=== PATIENT | female | born 1995 | race Caucasian/White ===

== ENCOUNTER 2024-10-14 08:42 | Emergency (ER) | payer BC, SELFPAY ==
[2024-10-14 08:44] VITALS: BP 109/70; PULSE 85; RESP 18; TEMP 37.7; O2SAT 97; BMI 21.8
--- NOTE | 2024-10-14 09:00 | CRLHL7_ITS ---
For Patients: As a result of the Century Cures Act, medical imaging exams and procedure reports are released immediately into your electronic medical record. You may view this report before your referring provider. If you have questions, please contact your health care provider. Indication: Bleeding in the setting of a 1st trimester . Dating and viability Technique: Sonography of the gravid uterus was performed. The study was performed transabdominally and transvaginally. Grayscale imaging was provided. Color Doppler was provided regarding the ovaries and M mode Doppler was performed to document heart rate. Comparison: None Findings: There is a single live intrauterine . Based on a crown-rump length measurement of 1.5 centimeters, the gestational age of 7 weeks and 6 days with an estimated date of delivery of 05/27/2025. heart rate is 159 beats per minute which is normal Gestational sac size is 3.8 centimeters and appears normal. The yolk sac is 4 millimeters and appears normal The ovaries are normal in size. The right ovary measures 4.1 x 2.1 x 2.9 centimeters and the left ovary measures 3.5 x 1.4 x 1.6 centimeters. A corpus luteum is noted on the right. There is a subchorionic hemorrhage measuring 4.2 x 2.6 x 0.5 centimeters Impression: 1. Single live intrauterine at 7 weeks and 6 days with an estimated date of delivery of 05/27/2025. 2. Normal heart rate at 159 beats per minute. 3. Subchorionic hemorrhage measuring 4.2 x 2.6 x 0.5 centimeters. Dictated by Jad Harris MD @ 10/14/2024 9:30:42 AM (Electronically Signed)
--- NOTE | 2024-10-14 09:14 | ED.PREGNANCY ---
HPI - General Date Seen: 10/14/24 Chief complaint: Vaginal Bleeding Stated complaint: bleeding, 7 wks Time Seen by Provider: 10/14/24 09:01 Source: patient Mode of arrival: ambulatory Limitations: no limitations History of Present Illness HPI Narrative: Patient is a 29-year-old female presenting to the emergency department for vaginal bleeding. She is . She is about 7 weeks . This is based off her last menstrual period. She states she was having some spotting earlier in the in states over the weekend she notices should have occasional episodes will she will pass a large amount of blood and then go back to spotting. Was treated for bacterial vaginosis early in her and is now being treated for vaginosis again. Currently getting metronidazole 500 mg b.i.d. for 7 days. States he feels mildly fatigued denies lightheadedness, dizziness, chest pain, shortness of breath, abdominal pain, dysuria, pelvic pain. No other concerns noted at this time. Is not aware of any other complications during her . Related Data Home Medications ?Medication ?Instructions ?Recorded ?Confirmed metronidazole 500 mg tablet 500 mg PO BID 10/14/24 10/14/24 vit no.95-ferrous 1 tab PO DAILY 10/14/24 10/14/24 fumarate 28 mg-folic acid 800 mcg tablet ( Multivitamins) Allergies Allergy/AdvReac Type Severity Reaction Status Date / Time amoxicillin Allergy Mild fever and Verified 10/14/24 08:52 rash Review of Systems Status of ROS: Reports: 10 or more systems reviewed and unremarkable except as noted in History and below Exam Narrative: Exam Narrative: Const: Well-nourished, Well-developed, in mild distress Eyes: PERRL, no conjunctival injection, and symmetrical lids HENT: Atraumatic external nose and ears. Moist mucous membranes. Neck: Symmetric, trachea midline, No thyromegaly. CVS: RRR, No murmurs or gallops. Peripheral pulses 2+ and equal in all extremities RESP: Unlabored respiratory effort. Clear to auscultation bilaterally. GI: Nontender/Nondistended, No rebound or guarding. MSK:Extremities w/o deformity, Normal Active ROM Skin: Warm, Dry. No rashes or lesions. Neuro: Normal Muscle tone, No focal neurological deficits. Psych: Awake, Alert, & Oriented x3. Appropriate mood and affect. Const: Vital Signs, click to edit/add: Vital Signs - 24 hr 10/14/24 08:44 Temperature 99.9 F H Pulse Rate [Pulse Oximeter] 85 Respiratory Rate 18 Blood Pressure [Ri ght Upper Arm] 109/70 Pulse Oximetry 97 Oxygen Delivery Me thod Room Air Course Vital Signs Vital signs: Initial Vital Signs Temperature 99.9 F H 10/14/24 08:44 Temperature Source Temporal Artery Scan 10/14/24 08:44 Pulse Rate 85 10/14/24 08:44 Respiratory Rate 18 10/14/24 08:44 Blood Pressure 109/70 10/14/24 08:44 Blood Pressure Mean 83 10/14/24 08:44 Blood Pressure Position Sitting 10/14/24 08:44 Pulse Oximetry 97 10/14/24 08:44 Oxygen Delivery Method Room Air 10/14/24 08:44 Vital Signs Temperature 99.9 F H 10/14/24 08:44 Pulse Rate 85 10/14/24 08:44 Respiratory Rate 18 10/14/24 08:44 Blood Pressure 109/70 10/14/24 08:44 Pulse Oximetry 97 10/14/24 08:44 Oxygen Delivery Method Room Air 10/14/24 08:44 Temperature 99.9 F H 10/14/24 08:44 Pulse Rate 85 10/14/24 08:44 Respiratory Rate 18 10/14/24 08:44 Blood Pressure 109/70 10/14/24 08:44 Pulse Oximetry 97 10/14/24 08:44 Oxygen Delivery Method Room Air 10/14/24 08:44 MDM - OB/Uterine Contractions MDM Narrative Medical decision making narrative: Patient is a 29-year-old female presenting to the emergency department for vaginal bleeding. Will do an ultrasound to look for signs of miscarriage and/or ectopic . She has not had an ultrasound done yet. Is not having any current pain. Will check a hemoglobin and a quantitative hCG. CBC and quantitative hCG showed no concerning abnormalities. Ultrasound shows a subchorionic hemorrhage was is likely the cause of her bleeding. She is 7 weeks 6 days along with a normal heart rate. No signs of ectopic . Bleeding is relatively minimal and I do not believe medicine or surgical management is required at this time. She is otherwise doing well and can be safely discharged. She will follow up outpatient with Ob Lab Data Labs: Lab Results 10/14/24 Range/Units 09:21 WBC 7.29 (4.50-11.00) K/uL RBC 4.30 (4.00-5.20) m/uL Hgb 12.9 (12.0-16.0) gm/dL Hct 37.8 (33.0-51.0) % MCV 88 (80-100) fL MCH 30 (26-34) pg MCHC 34 (32-36) gm/dL RDW Coeff of Oscar 13.0 (11.5-15.5) % Plt Count 222 (140-440) K/uL Neut % (Auto) 72.3 H (42.0-72.0) % Lymph % (Auto) 18.7 L (20-44) % Upson % (Auto) 7.3 (0.0-11.0) % Eos % (Auto) 1.1 (0.0-7.0) % Baso % (Auto) 0.3 (0.0-3.0) % Neut # (Auto) 5.30 (1.7-7.0) K/uL Lymph # (Auto) 1.40 (0.90-2.90) K/uL Upson # (Auto) 0.50 (0.00-0.90) K/UL Eos # (Auto) 0.08 (0.00-0.50) K/uL Baso # (Auto) 0.02 (0.00-0.30) K/uL Abs Immat Gran (auto) 0.02 (0.00-0.30) K/uL Imm/Tot Granulo (auto) 0.3 % HCG, Quant 832033.00 mIU/mL Imaging Data Pelvic ultrasound: Radiologist's impression: 1. Single live intrauterine at 7 weeks and 6 days with an estimated date of delivery of 05/27/2025. 2. Normal heart rate at 159 beats per minute. 3. Subchorionic hemorrhage measuring 4.2 x 2.6 x 0.5 centimeters. Dictated by Jad Harris MD @ 10/14/2024 9:30:42 AM Discharge Plan Discharge Clinical Impression: Subchorionic hemorrhage in first trimester Patient Disposition: Home, Self-Care Condition: Stable Instructions: Subchorionic Hemorrhage (ED) Additional Instructions: I recommend calling [place] woman self the schedule an outpatient appointment. Return to emergency department for new or worsening symptoms. Prescriptions: No Action metronidazole 500 mg tablet 500 mg PO BID PNV cmb#95-ferrous fumarate-FA [ Multivitamins] 28 mg iron- 800 mcg tablet 1 tab PO DAILY Follow Up/Referrals: Provider,Not a Local [Primary Care Provider] - Stand Alone Forms: ivWatch Info Instructions
[2024-10-14 09:29] LABS: Basophils Absolute Auto 0.02 K/uL (0.00-0.30); Basophils Percent Auto 0.3 % (0.0-3.0); Eosinophils Absolute Auto 0.08 K/uL (0.00-0.50); Eosinophils Percent Auto 1.1 % (0.0-7.0); Hematocrit 37.8 % (33.0-51.0); Hemoglobin* 12.9 gm/dL (12.0-16.0); Immature Granulocytes Abs Auto 0.02 K/uL (0.00-0.30); Immature Granulocytes Pct Auto 0.3 %; Lymphocytes Percent Auto 18.7 % (20-44); Mean Corpuscular HGB Conc 34 gm/dL (32-36); Mean Corpuscular Hemoglobin 30 pg (26-34); Mean Corpuscular Volume 88 fL (80-100); Monocytes Percent Auto 7.3 % (0.0-11.0); Neutrophils Percent Auto 72.3 % (42.0-72.0); Platelet Count* 222 K/uL (140-440); White Blood Count* 7.29 K/uL (4.50-11.00)
[2024-10-14 09:37] LABS: Slide Review Reflex No
--- OUTSIDE RECORDS SUMMARY | 2024-10-14 09:51 | XMS_ITS | Encounter Summary ---
Author Organization [facility] Address [address] [place] [address] Care Team Providers Care Special Needs Caregiver Name Role Phone Elsewhere, Pcp Primary Care Provider Unavailabl e Encounter Details Date Type Department Care Team (Late st Contact Info) Description 10/13/2024 Results Follow-Up [facility] [address] [place] [address] Baldo Acuna, P.AKrystal-Bryant., P.A. [address] [address] Vaginitis Panel, Amplified RNA Social History Tobacco Use Types Packs/Day Years Used Date Smoking Tobacco: Never Passive Smoke Exposure: Current Smokeless Tobacco: Never Alcohol Use Standard Drinks/Week Comments Not Currently 0 (1 standard drink = 0.6 oz pur e alcohol) Dental Answer Date Recorded Dental: Regular Dentist Unknown 10/13/19 25 Estimated Date of Delivery Comme nts Yes 05/28/2025 Sex and Gender Information Value Date Recorded Sex Assigned at Not on file Legal Sex Female 2:33 AM CLIN NURSE Gender Identity Not on file Sexual Orientation Not on file documented as of this encounter Plan of Treatment Not on file documented as of this encounter Visit Diagnoses Not on filedocumented in this encounter Care Teams Special Needs Caregiver Relationship Specialty Start Date End Date Elsewhere, Pcp PCP - General Internal Medicine 10/12/24 documented as of this encounter
--- OUTSIDE RECORDS SUMMARY | 2024-10-14 09:51 | XMS_ITS | Encounter Summary ---
Author Organization [facility] Address [address] [address] Phone Care Team Providers Care Meteorological Engineer Name Role Phone Elsewhere, Pcp Primary Care Provider Unavailabl e Encounter Details Date Type Department Care Team (Latest Contact Info) Description 09/26/2024 Travel Social History Tobacco Use Types Packs/Day Years Used Date Smoking Tobacco: Never Smokeless Tobacco: Never Alcohol Use Standard Drinks/Week Comments Yes 1 (1 standard drink = 0.6 oz pur e alcohol) Humiliation, Afraid, Rape, and Kick questionnair e Answer Date Recorded Within the last year, have y ou been afraid of your partner or ex-partner? No 03/14/2023 Within the last year, have y ou been humiliated or emotionally abused in other ways by your partner or ex-partner? No Within the last year, have y ou been kicked, hit, slapped, or otherwise physically hurt by your partner or ex-partner? No 03/14/2023 Within the last year, have y ou been raped or forced to have any kind of sexual activity by your partner or ex-partner? 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
--- OUTSIDE RECORDS SUMMARY | 2024-10-14 09:51 | XMS_ITS | Encounter Summary ---
Author Organization [facility] Address [address] [address] Phone Care Team Providers Care Claims Processor Name Role Phone Elsewhere, Pcp Primary Care Provider Unavailabl e Reason for Visit * Reason Comments Filer And Sander Exam Encounter Details Date Type Department Care Team (Late st Contact Info) Description 09/26/2024 9:20 AM CDT [facility] [place] [address] [place] [address] [phone] Temi Echeverria PA-C [facility] [address] [facility] [address] [place], [place] [phone] Acute vaginitis (Primary Dx) Social History Tobacco Use Types Packs/Day Years [...] on file documented as of this encounter Last Filed Vital Signs Vital Sign Reading Time Taken Comments Blood Pressure 100/58 09/26/2024 9:14 AM CDT Pulse - - Temperature - - Respiratory Rate - - Oxygen Saturation - - Inhaled Oxygen Concentration - - Weight 58.1 kg (128 lb) 09/26/2024 9:14 AM CDT Height 162.6 cm (5' 4) 09/26/2024 9:14 AM CDT Body Mass Index 21.97 09/26/2024 9:14 AM CDT documented in this encounter Patient Instructions * Patient Instructions* Temi Echeverria PA-C - 09/26/2024 9:20 AM CDT 1. Acute vaginitis (Primary) - SMEAR WET MOUNT SALINE/INK Other orders - metroNIDAZOLE vaginal (Metrogel-Vaginal) 0.75 % vaginal gel; Insert 1 Applicator into the vagina two times a day for 7 days. If your provider has ordered a radiology test that needs to be scheduled at any of the [facility] facilities, for your convenience and to offer you the best service, we ask that you contact the [facility] directly at [phone]. If you have an Ultrasound or DEXA order from [facility], those are performed directly by them. Please call [phone] ([place]) or [phone] ([place]) to schedule those tests. documented in this encounter Ordered Prescriptions Prescription Sig Dispense Quantity Refills Last Filled Start Date End Date metroNIDAZOLE vaginal (Metrogel-Vaginal) 0.75 % vaginal gel Insert 1 Applicator into the vagina two times a day for 7 days. 70 g 2 09/26/2024 documented in this encounter Progress Notes * Temi Echeverria PA-C - 09/26/2024 9:20 AM CDT CC: vaginal odor and irritation Debra is a 29 year old who presents with concern of Possible BV or Yeast infection This is an Acute problem for her. The problem began several weeks ago and has tried OTC meds . She states the problem is located: intravaginally and does not radiate. Are there associated features with the problem- if yes describe: yes - odor and irritation. Milky white and yellow dishcarge. The patient does not additional complaints. Aggravating factors include: sexual intercourse Alleviating factors include: she tried 7 day monistat course, which improved some symptoms, but then odor and irritation resumed. Current method of contraception:None Home UPT positive on 09/24. They are thrilled for . Just bought their house and getting keys. Moving, so will be seeing Tool Trouble Shooter at [facility] in [facility]. DROSS PULLER Hx: Patient's last menstrual period was 08/23/2024. Hx STIs: none Patient's medications, allergies, past medical, surgical, social and family histories were reviewedand updated as appropriate. ROS: CONSTITUTIONAL: denies fatigue, fever, chills or loss of appetite EYES: denies visual changes HENT: denies headaches CV: denies chest pain or shortness of breath, RESPIRATORY: denies cough, wheezing or palpitations GI: denies nausea/vomiting, diarrhea, constipation or abdominal pain : denies frequency/burning with urination, blood in urine, urinary leakage or painful periods BREAST: denies breast lumps tenderness or nipple discharge SKIN: denies new skin lesion or changes in existing skin lesions PSYCH: denies anxiety, depression or difficulty sleeping ENDOCRINE: denies heat intolerance, acne or abnormal hair growth HEME/LYMPH: No easy bleeding/bruising or swollen nodes OBJECTIVE: Vitals: 09/26/24 0914 BP: 100/58 Height: 1.626 m (5' 4) Weight: 58.1 kg (128 lb) BMI (Calculated): 21.97 Physical Exam: CONSTITUTIONAL well-nourished, well developed, alert, in no acute distress ABDOMEN: soft, non-tender, no palpable masses, or lesions PELVIC: External genitalia: normal for age, labia majora, minora, clitoris, BUS WNL Vagina: normal appearing mucosa, no lesions +creamy white discharge Cervix: normal appearing cervix. no lesions. no tenderness, no bleeding SKIN: no rashes, no evidence of skin breakdown, no suspicious nevi, no discoloration Recent Results (from the past 24 hours) SMEAR WET MOUNT SALINE/INK Result Value Ref Range WBC, Wet Prep None Seen None Seen Clue Cells, Wet Prep Many (A) None Seen Yeast, Wet Prep None Seen None Seen Trichomonas, Wet prep None Seen None Seen +whiff ASSESSMENT: Problem List Items Addressed This Visit Vaginitis - Primary Relevant Orders SMEAR WET MOUNT SALINE/INK (Completed) ORDERS/PLAN: Orders Placed This Encounter SMEAR WET MOUNT SALINE/INK metroNIDAZOLE vaginal (Metrogel-Vaginal) 0.75 % vaginal gel As patient has had recurrent BV, will treat now with MetroGel twice daily for 7 days, then once or twice a week for the next 4 to 6 months. Discussed with the patient that this is safe in . Also discussed with patient that MetroGel could cause yeast infection, so I would encourage her to repeat course of Monistat 7 after she completes the 7-day metronidazole course. She declines STI screening and affirm to be sent today, which is very reasonable. She plans care through [facility]. Indications for follow-up reviewed with patientand she states she understands and is agreeable to plan. Encourage pelvic rest until she completes the Monistat course and all symptoms are fully resolved. Temi Echeverria PA-C Portions of this document were transcribed using voice recognition software and may contain unintended word substitution errors. documented in this encounter Plan of Treatment Not on file documented as of this encounter Procedures Procedure Name Priority Date/Time Associated Diagnosis Comments SMEAR WET MOUNT SALINE/INK Routine 09/26/2024 Acute vaginitis documented in this encounter Results * (ABNORMAL) SMEAR WET MOUNT SALINE/INK (09/26/2024) WBC, Wet Prep None Seen None Seen Clue Cells, Wet Prep Many(A) None Seen Yeast, Wet Prep None Seen None Seen Trichomonas, Wet prep None Seen None Seen Swab VAGINAL SWAB / Unknown 09/26/2024 Temi YIP POCT ORDERABLES Final Result documented in this encounter Visit Diagnoses Diagnosis Acute vaginitis- Primary Vaginitis and vulvovaginitis, unspecified documented in this encounter Care Teams Claims Processor Relationship Specialty Start Date End Date Elsewhere, Pcp PCP - General 08/09/24 documented as of this encounter
--- OUTSIDE RECORDS SUMMARY | 2024-10-14 09:51 | XMS_ITS | Encounter Summary ---
Author Organization [facility] Address [address] [place] [address] Care Team Providers Care Whitewasher Name Role Phone Elsewhere, Pcp Primary Care Provider Unavailabl e Reason for Visit * Reason Comments Vaginal Discharge Pt presents under re commendations from her television engineer to be tested for BV. Pt is ~7wks . Encounter Details Date Type Department Care Team (Late st Contact Info) Description 10/12/2024 11:48 AM CDT - 10/12/2024 2:31 PM CDT Emergency [place] [facility] [address] [place] [phone] Baldo Acuna, P.A.-Bryant., P.A. [address] [phone] Discharge Vaginal (Primary Dx); Less Than 8 Weeks Gestation (HCC); Vaginosis Bacterial Discharge Disposition: Home or Self Care Social History Tobacco Use Types Packs/Day Years Used Date Smoking Tobacco: Never Passive Smoke Exposure: Current Smokeless Tobacco: Never Tobacco Cessation:Counseling Given: Not Answered Alcohol Use Standard Drinks/Week Comments Not Currently 0 (1 standard drink = 0.6 oz pur e alcohol) Dental Answer Date Recorded Dental: Regular Dentist Unknown 10/13/19 25 Estimated Date of Delivery Comme nts Yes 05/28/2025 Sex and Gender Information Value Date Recorded Sex Assigned at Not on file Legal Sex Female 2:33 AM ACTIVITIES SPECIALIST Gender Identity Not on file Sexual Orientation Not on file documented as of this encounter Last Filed Vital Signs Vital Sign Reading Time Taken Comments Blood Pressure 121/74 10/12/2024 11:35 AM CDT Pulse 88 10/12/2024 11:35 AM CDT Temperature 37.4 C (99.3 F) 10/12/2024 11:35 AM CDT Respiratory Rate 20 10/12/2024 11:35 AM CDT Oxygen Saturation 98% 10/12/2024 11:35 AM CDT Inhaled Oxygen Concentration - - Weight 57.6 kg (127 lb) 10/12/2024 11:32 AM CDT Height - - Body Mass Index - - documented in this encounter Medications at Time of Discharge metroNIDAZOLE (FlagyL) 500 mg tabletIndications :Vaginosis Bacterial Take 1 tablet (500 mg total) by mouth 2 (two) times a day for 7 days. 14 tablet 10/13/2024 10/20/2024 [id number] 29-1-400 mg combo pack,tablet & cap,DR Take by mouth. valACYclovir (Valtrex) 1000 mg tablet Take 1,000 mg by mouth. 08/09/2023 documented as of this encounter Progress Notes * Baldo Acuna P.A.-C., P.A. - 10/12/2024 12:24 PM CDT SUBJECTIVE SUBJECTIVE Debra Ramon is an 29 y.o. woman who presents with vaginal symptoms including scant brown streakeddischarge . Onset of symptoms 2 week(s) ago. Patient was treated with metronidazole cream for the suspected BV. Pt then treated herself for the suspected yeast infection with the OTC medication. Pt reports h/o frequent BV in the past. She is about 7 weeks . Has appointment with SHINGLE CARRIER in 4 days. Pt denied fever, abdominal pain, pelvic pain, dysuria, urinary frequency, urinary urgency, diarrhea, nausea, and vomiting. Pt is . LMP 08/23/2024. Predisposing factors: denies knowledge of risky exposure STI hx: none Sexually active: single partner, contraception - none; Social History Substance and Sexual Activity Sexual Activity Defer Allergies[1] I have reviewed the current medication list. OBJECTIVE OBJECTIVE: BP 121/74 (BP Location: Left arm, Patient Position: Sitting) Pulse 88 Temp 37.4 ??C (Temporal) Resp 20 Wt 57.6 kg SpO2 98% No General: healthy, alert and oriented x 3, no distress, cooperative, responds appropriately to auditory and visual stimuli Lungs: Lungs clear bilaterally Heart: regular rate and rhythm Abdomen: Abdomen soft, non-tender. Bowel sounds normal. No masses, organomegaly, negative CVA tenderness Skin: Skin color, texture, turgor normal. No rashes or lesions Recent Results (from the past 24 hours) CBC with Differential, Blood Collection Time: 10/12/24 12:28 PM Result Value Hemoglobin 13.9 Hematocrit 40.1 Erythrocytes 4.58 MCV 87.6 RBC Distrib Width 12.8 Platelet Count 231 Leukocytes 8.8 Neutrophils 6.26 Lymphocytes 1.73 Monocytes 0.67 Eosinophils 0.09 Basophils <0.04 hCG (Human Chorionic Gonadotropin), Quantitative, Collection Time: 10/12/24 12:28 PM Result Value HCG, Quantitative, , P [id number] (H) Vaginitis Panel, Amplified RNA Collection Time: 10/12/24 12:37 PM Specimen: Vagina; Swab Result Value Bacterial Vaginosis, Amplified RNA Positive (A) Lexi species, Amplified RNA Negative Lexi glabrata, Amplified RNA Negative Trichomonas vaginalis Amplified RNA Negative ASSESSMENT / PLAN ASSESSMENT and PLAN Diagnosis Plan 1. Discharge Vaginal Active CBC with Differential, Blood Vaginitis Panel, Amplified RNA hCG (Human Chorionic Gonadotropin), Quantitative, CBC with Differential, Blood Vaginitis Panel, Amplified RNA hCG (Human Chorionic Gonadotropin), Quantitative, 2. Less Than 8 Weeks Gestation (HCC) Active 3. Vaginosis Bacterial Acute metroNIDAZOLE (FlagyL) 500 mg tablet Follow up with your SHINGLE CARRIER as scheduled. Please go to the ED if notice cramping/pain, astrid vaginalbleeding. Discussed that pt needs to continue taking vitamins and continue taking them aswell. She has a scheduled visit with her primary care provider, follow up as scheduled. Itwill be important to abstain from alcohol, tobacco and other drugs that could affect normal . All meat should be well done. Avoid contacts with children with suspected slapped cheek disease and varicella. Do not change cat litter. Call with any related questions. Patient Education: Discussed normal vaginal physiology, vaginitis, modes of transmission, and rationale for treatment. Side effects of the prescribed/recommended medications discussed. Questions answered. Baldo Acuna P.A.-C., P.AKrystal 10/12/24 1420 [1] Allergies Allergen Reactions Amoxicillin Rash Baldo Acuna P.A.-C., P.A. 10/13/24 0810 documented in this encounter Plan of Treatment Not on file documented as of this encounter Procedures Procedure Name Priority Date/Time Associated Diagnosis Comments VAGINITIS PANEL, AMPLIFIED RNA STAT 10/12/2024 12:37 PM CDT Discharge Vaginal CBC WITH DIFFERENTIAL, B STAT 10/12/2024 12:28 PM CDT Discharge Vaginal HUMAN CHORIONIC GONADOTROPIN (HCG), YESSICA, STAT 10/12/2024 12:28 PM CDT Discharge Vaginal documented in this encounter Results * (ABNORMAL) Vaginitis Panel, Amplified RNA (10/12/2024 12:37 PM CDT) Bacterial Vaginosis, Amplified RNA Positive(A) Negative 10/12/2024 11:59 PM CDT MKTO Comment: Results should be interpreted alongside clinical presentation. Up to 40% of asymptomatic patients may test positive by this assay. Assay result is based on relative amounts of Lactobacillus (L. gasseri, L. crispatus, L. jensenii), Gardnerella vaginalis and Atopobium vaginae. Individual organisms are not reported. Lexi species, Amplified RNA Negative Negative 10/13/2024 4:08 AM CDT MKTO Comment: No RNA detected from Lexi albicans, C. tropicalis, C. parapsilosis or C. dubliniensis. A negative result does not exclude infection. Lexi glabrata, Amplified RNA Negative Negative 10/13/2024 4:08 AM CDT MKTO Comment: No RNA detected from Lexi glabrata. A negative result does not exclude infection. Trichomonas vaginalis Amplified RNA Negative Negative 10/13/2024 4:08 AM CDT MKTO Swab (Vagina) 10/12/2024 12: 37 PM CDT 10/12/2024 4:22 PM CDT Baldo Acuna P.A.-C., P.A. LAB M ICROBIOLOGY - GENERAL ORDERABLES Final Result Performing Organization Address City/[facility]/ZIP Co de Phone Number [facility] [address] [place] [address], [place] [address] [address] * (ABNORMAL) hCG (Human Chorionic Gonadotropin), Quantitative, (10/12/2024 12:28 PM CDT) Pathologist [facility] HCG, Quantitative, , P [id number](H) <5 IU/L 10/12/2024 1:04 PM CDT NPRG Blood (Blood, Venous) 10/12/2024 12:28 PM CDT 10/12/2024 12:30 PM CDT us Baldo Acuna P.A.-C., P.A. LAB BLOOD ADD -ON Final Result [facility] [address] [place] [address], [place] NPRG [facility] [address] [place] [address] * CBC with Differential, Blood (10/12/2024 12:28 PM CDT) Hemoglobin 13.9 11.6 - 15.0 g/dL 10/12/2024 12:33 PM CDT NPRG Hematocrit 40.1 35.5 - 44.9 % 10/12/2024 12:33 PM CDT NPRG Erythrocytes 4.58 3.92 - 5.13 x10(12)/L 10/12/2024 12:33 PM CDT NPRG MCV 87.6 78.2 - 97.9 fL 10/12/2024 12:33 PM CDT NPRG RBC Distrib Width 12.8 12.2 - 16.1 % 10/12/2024 12:33 PM CDT NPRG Platelet Count 231 157 - 371 x10(9)/L 10/12/2024 12:33 PM CDT NPRG Leukocytes 8.8 3.4 - 9.6 x10(9)/L 10/12/2024 12:33 PM CDT NPRG Neutrophils 6.26 1.56 - 6.45 x10(9)/L 10/12/2024 12:33 PM CDT NPRG Lymphocytes 1.73 0.95 - 3.07 x10(9)/L 10/12/2024 12:33 PM CDT NPRG Monocytes 0.67 0.26 - 0.81 x10(9)/L 10/12/2024 12:33 PM CDT NPRG Eosinophils 0.09 0.03 - 0.48 x10(9)/L 10/12/2024 12:33 PM CDT NPRG Basophils <0.04 0.01 - 0.08 x10(9)/L 10/12/2024 12:33 PM CDT NPRG Blood (Blood, Venous) 10/12/2024 12:28 PM CDT 10/12/2024 12:30 PM CDT Baldo Acuna P.A.-C., P.A. LAB BLOOD ADD -ON Final Result [facility] [address] [place] [address], [place] NPRG [facility] [address] [place] [address] documented in this encounter Visit Diagnoses Diagnosis Discharge Vaginal- Primary Less Than 8 Weeks Gestation (HCC) Vaginosis Bacterial documented in this encounter Care Teams Whitewasher Relationship Specialty Start Date End Date Elsewhere, Pcp PCP - General Internal Medicine 10/12/24 documented as of this encounter
--- OUTSIDE RECORDS SUMMARY | 2024-10-14 09:51 | XMS_ITS | Clinical Summary ---
Author Organization [facility] Address [address] [place] [address] Care Team Providers Care Work And Family Life Consultant Name Role Phone Elsewhere, Pcp Primary Care Provider Unavailabl e Source Comments Patient records contain information from all sites at [facility]. For routine questions regarding patient records, call [phone] during business hours, M-F 8:00 AM - 5:00 PM Central Time. Record requests for emergency care only can be directed to [phone] at any time.[facility] Allergies Active Allergy Reactions Criticality Noted Date Comments Amoxicillin Rash High 10/24/2006 Medications valACYclovir (Valtrex) 1000 mg tablet Take 1,000 mg by mouth. 08/09/2023 Active [id number]-ybat- folic-omega3 29-1-400 mg combo pack,tablet & capDR Take by mouth. Active metroNIDAZOLE (FlagyL) 500 mg tabletIndication s:Vaginosis Bacterial Take 1 tablet (500 mg total) by mouth 2 (two) times a day for 7 days. 14 tablet 10/13/2024 Active Active Problems Estimated Date of Delivery Comme nts Yes 05/28/2025 No known active problems Encounters Date Type Department Care Team Description 10/13/2024 Results Follow-Up [facility] [place] [facility] [address] [place] [phone] Baldo Acuna PTwin.Racheal., P.A. Vaginitis Panel, Amplified RNA 10/12/2024 11:48 AM CDT - 10/12/2024 2:31 PM CDT Emergency [facility] [address] [place] [phone] Baldo Acuna P.A.-C., P.A. 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 Gender Identity Not on file Sexual Orientation Not on file Last Filed Vital Signs Vital Sign Reading [...] - - Body Mass Index - - Plan of Treatment Not on file Procedures Procedure Name Priority Date/Time Associated Diagnosis Comments VAGINITIS PANEL, AMPLIFIED RNA STAT 10/12/2024 12:37 PM CDT Discharge Vaginal HUMAN CHORIONIC GONADOTROPIN (HCG), YESSICA, STAT 10/12/2024 12:28 PM CDT Discharge Vaginal CBC WITH DIFFERENTIAL, B STAT 10/12/2024 12:28 PM CDT Discharge Vaginal from Last 3 Months Results * (ABNORMAL) Vaginitis Panel, Amplified RNA [...] M ICROBIOLOGY - GENERAL ORDERABLES Final Result [facility] [address] [place] [address], [facility] MKTO [facility] [address] * CBC with Differential, Blood (10/12/2024 12:28 [...] P.A. LAB BLOOD ADD -ON Final Result [facility] [address] [place] [address], [facility] NPRG [facility] [address] [place] [address] * (ABNORMAL) hCG (Human Chorionic Gonadotropin), Quantitative, (10/12/2024 12:28 PM CDT) HCG, Quantitative, , P [id number](H) <5 IU/L 10/12/2024 1:04 PM CDT NPRG Blood (Blood, Venous) 10/12/2024 12:28 PM CDT 10/12/2024 12:30 PM CDT us Baldo Acuna P.A.-C., P.A. LAB BLOOD ADD -ON Final Result [facility] [address] [place] [address], [facility] NPRG [facility] [address] [place] [address] from Last 3 Months Insurance [facility] Care Teams Work And Family Life Consultant Relationship Specialty Start Date End Date Elsewhere, Pcp PCP - General Internal Medicine 10/12/24
--- OUTSIDE RECORDS SUMMARY | 2024-10-14 09:51 | XMS_ITS | Clinical Summary ---
Author Organization [facility] Address [address] [address] Phone Care Team Providers Care Data Warehouse Specialist Name Role Phone Elsewhere, Pcp Primary Care Provider Unavailabl e Allergies Active Allergy Reactions Criticality Noted Date Comments Amoxicillin RASH High 04/01/2016 Medications valACYclovir (Valtrex) 1 GM tabletIndicatio ns:Infection Take 1 Tablet by mouth one time a day. Start at first onset of symptoms and continue 5 days. Indications: Infection 30 Tablet 1 4 Active [id number]-G JOSEPH OR Take by mouth. Activ e metroNIDAZOLE vaginal (Metrogel-Vagin al) 0.75 % vaginal gel Insert 1 Applicator into the vagina two times a day for 7 days. 70 g 2 5 10/04/19 25 Active Problems Patient Care Coordination No te Formatting of this note migh t be different from the original. Provider: Please Assess and Document at the upcoming/next visit if appropriate- Bipolar disorder with depression (HCC) F31.9 Problem Noted Date Diagnosed Date Weight loss, unintentional 12/12/201803/16 Neck and shoulder pain 10/19/2018 3 Overview (03/16/2023): Impression - [id number]: -Recommend back juan daniel -Yoga -Stretch twice daily - Massage Insomnia 10/19/2018 03/16/2023 Overview (03/16/2023): Impression - [id number]: -Refill ambien 5mg as needed; Impression - [id number]: - Trial ambien 5mg as needed -Try melatonin 1-3 mg nightly -Sleep handout provided Adjustment disorder with mixed anxiety and depre ssed mood 09/22/2018 03/16/2023 Overview (03/16/2023): Impression - [id number]: -Referred to counseling Bipolar disorder with depression 09/19/2018 03/16/2023 Overview (03/16/2023): Impression - [id number]: -Lamotrigine to 1/2 tab twice daily (150 mg daily) - Increase lithium ER to 450mg twice daily -Check lithuim level at 1 week - may make lab only appointment - 12 hours after evening dose -Return to counseling -Check BMP, HCG, [place] level, TSH -Follow up in 4 weeks -Referred to pychiatry for further evaluation and treatment; Impression - [id number]: -DECREASE Lamotrigine to 1/2 tab (100mg daily) -Start lithium ER 300mg daily -Check lithuim level at 1 week - may make lab only appointment - 12 hours after evening dose -Continue counseling -Follow up in 2-4 weeks -Referred to pychiatry for further evaluation and treatment; Impression - [id number]: -Continue Lamotrigine 200mg daily -Start quetiapine 50mg at night - Has counseling appointment next week -Follow up in 2-4 weeks -Will call at 2 weeks to check in; Impression - [id number]: -Continue lamotroginewith slow increase in dose -Normal cbc and tsh -Follow up in 1 month to repeat CBC -Warning si/sx of allergic reaction discussed If you experience suicidal thoughts call 911 and/or the national suicide prevention hotline at , and contact your provider as soon as possible.; Impression - [id number]: -Start lamotrogine 25mg daily - follow instructions for slow increase in dose -Check TSH, CBC -Follow up in 1 month to repeat CBC -Warning si/sx of allergic reaction discussed If you experience suicidal thoughts call 911 and/or the national suicide prevention hotline at , and contact your provider as soon as possible. Vaginitis 12/04/2014 03/16/2023 Menorrhagia 10/19/2014 03/16/2023 Anemia 10/19/2014 03/16/2023 UTI symptoms 08/07/2013 03/16/2023 Resolved Problems Problem Noted Date Diagnosed Date Resolved Date IUD (intrauterine device) in place 03/14/2023 05/03/2023 Overview (03/14/2023): Myles muller August 2018. Strings not visible on exam, ultrasound ordered. Encounters Date Type Department Care Team Description 09/26/2024 9:20 AM CDT Office Visit [facility] RESTAURANT INSPECTOR [address] [address] Temi Echeverria PA-C Acute vaginitis (Primary Dx) 09/26/2024 Travel 08/19/2024 10:40 AM ORGANIZATIONAL EFFECTIVENESS DIRECTOR Office Visit [facility] RESTAURANT INSPECTOR [address] [address] Temi Echeverria PA-C Bacterial vaginitis (Primary Dx) 08/19/2024 Travel 08/09/2024 4:00 PM ORGANIZATIONAL EFFECTIVENESS DIRECTOR Office Visit [facility] RESTAURANT INSPECTOR [address] [address] Luz Cutler MD Encounter for IUD removal (Primary Dx) 08/09/2024 Travel from Last 3 Months Immunizations Name Administration Dates Next Due DTaP <7 years 11/06/1998, 8,1997, 8 Hepatitis B, Pediatric/adolescent 1997,10/1997,1997 Hib (Hib-TITER) 11/06/1998, 8,1997, 8 IPV 11/06/1998,1997,1997 MMR 11/06/1998 Tdap (7 years and older) 08/11/2020,12/22/2008 Varicella (Varivax) 12/22/2008,04/24/1998 Medical History Medical History Date Comments History of herpes simplex infection 04/01/2016 Genital warts 04/01/2016 History of cyst of breast 08/07/2013 Onset: 07/03/2009; Description: Left breast Insomnia, unspecified Adjustment disorder with mix ed anxiety and depressed mood Weight loss, unintentional Family History Medical History Relation Comments Addiction Father Cancer Father [employer] TW - Problem: Family history of malignant neoplasm of oral cavity, Comment: Impression - 19Sep2018: 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 Lung Cancer Father Lung Cancer Maternal Grandfather No Known Problems Maternal Grandmother [employer] TW - Problem: No pertinent family history No Known Problems Mother [employer] TW - Problem: No pertinent family history No Known Problems Sister [employer] TW - Problem: No pertinent family history Relation Status Comments Father Maternal Grandfather Maternal Grandmother Mother Sister Social History Tobacco Use Types Packs/Day Years Used Date Smoking Tobacco: Never Smokeless Tobacco: Never Tobacco Cessation:Counseling Given: Not Answered Alcohol Use Standard Drinks/Week Comments Yes 1 [...] file Not on file Not on file Obstetrics History Para Term AB IAB SAB Ectopic Molar Multiple Living Live Births 1 1 Date Outcome GA Total Labor Labor/2nd/3rd Weight Sex Type Anes PTL Evelyn A1 A5 Name Clin AB 16w0d Last Filed Vital Signs Vital Sign Reading Time Taken Comments Blood Pressure 100/58 09/26/2024 9:14 AM CDT Pulse 95 10/23/2023 9:10 AM CDT Temperature 37.1 C (98.8 F) 10/23/2023 9:10 AM CDT Respiratory Rate 18 04/20/2021 11:34 AM CDT Oxygen Saturation 99% 10/23/2023 9:10 AM CDT Inhaled Oxygen Concentration - - Weight 58.1 kg (128 lb) 09/26/2024 9:14 AM CDT Height 162.6 cm (5' 4) 09/26/2024 9:14 AM CDT Body Mass Index 21.97 09/26/2024 9:14 AM CDT Plan of Treatment Health Maintenance Due Date Last Done Comments Last pap w/ HPV Testing 1997 COVID-19 Vaccine ( season) 2024 Influenza Vaccine Seasonal (Standing Order) (#1) 2024 Cervical Cancer Screening 03/15/2026 Last pap w/o HPV Testing 03/15/2026 03/15/2023 TETANUS (Standing Order) 08/11/2030 021, 12/22/2008, 11/06/1998, Additional history exists Hepatitis B Vaccine (Standing Order) Completed 1997, 1997, 1997 PERTUSSIS (Standing Order) Completed 08/11, 12/22/2008, 11/06/1998, Additional history exists Chlamydia Screening Discontinued 08/09/2023, 03/14/2023, 06/15/2021 HPV Vaccine (Standing Order) Aged Out No longer eligible based on patient's age to complete this topic Pneumococcal/PCV20 Vaccine: Pediatrics (2-5 yrs) and At-Risk Patients (6-49 yrs) (Standing Order) Aged Out No longer eligible based on patient's age to complete this topic Procedures Procedure Name Priority Date/Time Associated Diagnosis Comments SMEAR WET MOUNT SALINE/INK Routine 09/26/2024 Acute vaginitis SMEAR WET MOUNT SALINE/INK Routine 08/19/2024 Bacterial vaginitis CHLAMYDIA TRACHOMATIS/NEISSERI A GONORRHOEAE MOLECULAR DETECTION Routine 08/09/2023 11:46 AM ORGANIZATIONAL EFFECTIVENESS DIRECTOR Vaginal discharge from Last 3 Months or Most Recently Relevant to Health Maintenance Results * (ABNORMAL) SMEAR WET MOUNT SALINE/INK (09/26/2024) Only the most recent of2 resultswithin the time period is included. WBC, Wet Prep None Seen None Seen Clue Cells, Wet Prep Many(A) None Seen Yeast, Wet Prep None Seen None Seen Trichomonas, Wet prep None Seen None Seen Swab VAGINAL SWAB / Unknown 09/26/2024 Temi Echeverria PA-C RV POCT ORDERABLES Final Result * CHLAMYDIA TRACHOMATIS/NEISSERIA GONORRHOEAE MOLECULAR DETECTION (08/09/2023 11:46 AM ORGANIZATIONAL EFFECTIVENESS DIRECTOR) Chlamydia trachomatis Negative Negative 08/11/2023 1:02 PM ORGANIZATIONAL EFFECTIVENESS DIRECTOR [facility] Neisseria gonorrhoeae Negative Negative 08/11/2023 1:02 PM ORGANIZATIONAL EFFECTIVENESS DIRECTOR [facility] Swab VAGINAL CERVIX / Unknown Non-blood collection / Unknown 08/09/2023 11:46 AM ORGANIZATIONAL EFFECTIVENESS DIRECTOR 08/09/2023 4:14 PM ORGANIZATIONAL EFFECTIVENESS DIRECTOR Luz Cutler MD MICROBIOLOGY - GENERAL MALCOLM OLSEN Final Result Performing Organization Address City/[facility] de Phone Number [facility] [address] [place] [address], [place] [phone] from Last 3 Months or Most Recently Relevant to Health Maintenance Insurance [facility] OUT OF STATE [employer] Care Teams Data Warehouse Specialist Relationship Specialty Start Date End Date Elsewhere, Pcp PCP - General 08/09/24
--- OUTSIDE RECORDS SUMMARY | 2024-10-14 09:51 | XMS_ITS | Clinical Summary ---
Author Organization [facility] Address [facility] [place] [address] Care Team Providers Care Quality Assurance Engineer Name Role Phone Ky Pitts Primary Care Provider + Allergies Active Allergy Reactions Criticality Noted Date Comments Amoxicillin 10/24/2006 Medications cephalexin (KEFLEX) 500 mg capsuleIndicatio ns:Urinary tract infection without hematuria, site unspecified Take 1 Capsule (500 mg) by mouth three times daily. 21 Capsule 08/29/2022 Active Social History Tobacco Use Types Packs/Day Years Used Date Smoking Tobacco: Never Alcohol Use Standard Drinks/Week Comments Not Asked 0 (1 standard drink = 0.6 oz pur e alcohol) Comments Unknown Sex and Gender Information Value Date Recorded Sex Assigned at Not on file Legal Sex Female 7:22 AM ELECTRIC SEALING MACHINE OPERATOR Gender Identity Not on file Sexual Orientation Not on file Obstetrics History Last Filed Vital Signs Vital Sign Reading Time Taken Comments Blood Pressure 140/63 08/29/2022 9:01 PM ELECTRIC SEALING MACHINE OPERATOR Pulse 98 08/29/2022 9:01 PM ELECTRIC SEALING MACHINE OPERATOR Temperature 37.2 C (99 F) 08/29/2022 9:01 PM ELECTRIC SEALING MACHINE OPERATOR Respiratory Rate 16 08/29/2022 9:01 PM ELECTRIC SEALING MACHINE OPERATOR Oxygen Saturation 99% 08/29/2022 9:01 PM ELECTRIC SEALING MACHINE OPERATOR Inhaled Oxygen Concentration - - Weight 60.2 kg (132 lb 12.8 oz) 08/29/2022 9:01 PM ELECTRIC SEALING MACHINE OPERATOR Height 157.5 cm (5' 2) 08/29/2022 9:01 PM ELECTRIC SEALING MACHINE OPERATOR Body Mass Index 24.29 08/29/2022 9:01 PM ELECTRIC SEALING MACHINE OPERATOR Plan of Treatment Health Maintenance Due Date Last Done Comments Tdap 2008 Depression screening for age 12+ 2009 HIV for age 15-65 2012 BMI (ht and wt on same day) for age 18+ 2015 Hepatitis C screening for ag e 18-79 2015 Tetanus booster 2017 Pap test for age 21-65 2018 COVID-19 vaccine series (2023- season) 2024 Influenza Vaccine (Season Ended) 2025 Pneumococcal series for age 6-49 Aged Out No longer eligible based on patient's age to complete this topic Insurance [employer] [facility] Care Teams Quality Assurance Engineer Relationship Specialty Start Date End Date [place] [facility] [address] [id number] [facility] - General 08/29/22
--- OUTSIDE RECORDS SUMMARY | 2024-10-14 09:51 | XMS_ITS | Clinical Summary ---
Author Organization [facility] Address [address] [place] [address] Care Team Providers Care Facilities Supervisor Name Role Phone Unassigned, Provider Primary Care Provider Unava ilable Source Comments You are receiving this document as you are listed as the primary care provider,follow-up provider, or the patient has been referred to you for consultation.This is in compliance with the Medicare and[employer]health[employer] EHR Incentive Program,which states Providers who transition their patient to another setting of careor provider of care or refers their patient to another provider of care shouldprovide summary care record for each transition of care or referral. Xipin Allergies Active Allergy Reactions Criticality Noted Date Comments Amoxicillin Rash 08/11/2020 Medications No known medications Active Problems No known active problems Immunizations Immunization Administration Dates Next Due Tdap 08/11/2020 Social History Tobacco Use Types Packs/Day Years Used Date Smoking Tobacco: Never Smokeless Tobacco: Never Comments No Sex and Gender Information Value Date Recorded Sex Assigned at Not on file Legal Sex Female 7:15 AM CDT Gender Identity Not on file Sexual Orientation Not on file Last Filed Vital Signs Vital Sign Reading Time Taken Comments Blood Pressure 102/63 08/11/2020 1:09 PM DENTAL OFFICE ASSISTANT Pulse 92 08/11/2020 1:09 PM DENTAL OFFICE ASSISTANT Temperature 36.7 C (98.1 F) 08/11/2020 1:09 PM DENTAL OFFICE ASSISTANT Respiratory Rate 16 08/11/2020 1:09 PM DENTAL OFFICE ASSISTANT Oxygen Saturation 100% 08/11/2020 1:09 PM DENTAL OFFICE ASSISTANT Inhaled Oxygen Concentration - - Weight - - Height - - Body Mass Index - - Plan of Treatment Health Maintenance Due Date Last Done Comments Cervical Cancer Screening Due 1997 Hep C Screening (Preventive Services) 1997 HIV Screening (Preventive Services) 2013 Adult Preventive Visit 2015 HepB (1) 2016 COVID-19 Vaccine (1 - 2023-2 5 season) 2024 Influenza (#1) 2024 DTaP/Tdap/Td (2 - Tdap) 08/11/2030 08/11/2020 Zoster/Shingles (1 of 2) 2047 HPV Vaccine Aged Out No longer eligi ble based on patient's age to complete this topic HepA Aged Out No longer eligi ble based on patient's age to complete this topic Hib Aged Out No longer eligi ble based on patient's age to complete this topic IPV (Polio) Aged Out No longer eligi ble based on patient's age to complete this topic MCV4 Aged Out No longer eligi ble based on patient's age to complete this topic Meningococcal B Aged Out No longer el igible based on patient's age to complete this topic Pneumococcal Aged Out No longer eligi ble based on patient's age to complete this topic Insurance [facility] Care Teams Facilities Supervisor Relationship Specialty Start Date End Date Unassigned, Provider [address] [place] [address] PCP - General 02/07/01
== END 2024-10-14 10:46 | disposition home or self-care (01) ==
PROVIDERS: Emergency Provider Student in an Organized Health Care Education/Training Program
DX: O46.8X1 Other antepartum hemorrhage, first trimester (principal); Z3A.01 Less than 8 weeks gestation of pregnancy
CPT/HCPCS: 36415; 76817; 84702; 85025; 99284

== ENCOUNTER 2024-10-24 15:37 | Outpatient (CLI) | payer BC, SELFPAY ==
[2024-10-24 18:28] LABS: Bacterial Vaginosis* POSITIVE (Negative); Candida glab/krus NOT DETECTED (No Detected); Candida species NOT DETECTED (No Detected); Trichomonas vaginalis NOT DETECTED (No Detected)
[2024-10-24 18:59] LABS: Chlamydia DNA Amplified* NOT DETECTED (No Detected); GC DNA Amplified* NOT DETECTED (No Detected)
== END 2024-10-24 15:38 | disposition home or self-care (01) ==
PROVIDERS: Visit Provider Advanced Practice Midwife
DX: N89.8 Other specified noninflammatory disorders of vagina (principal); B37.9 Candidiasis, unspecified
CPT/HCPCS: 81513; 87109; 87481; 87491; 87591; 87661

== ENCOUNTER 2024-10-28 14:03 | Outpatient (CLI) | payer BC, SELFPAY ==
--- NOTE | 2024-10-28 14:00 | CRLHL7_ITS ---
For Patients: As a result of the Cures Act, medical imaging exams and procedure reports are released immediately into your electronic medical record. You may view this report before your referring provider. If you have questions, please contact your health care provider. OB ULTRASOUND TRANSVAGINAL INDICATION: Follow-up viability. TECHNIQUE: Real time wallace scale imaging of the fetus was performed. Transvaginal. LMP: 08/23/2024. DANIEL by LMP: 05/30/2025. GA: 9 w, 3 d. Previous US: Yes 10/14/2024. DANIEL by US: 05/30/2025. GA: 7 w, 6 d. CRL: 3.1 cm. 10 w 0 d. DANIEL: 05/26/2025. FHR: 157 BPM. Gestational sac: 5.0 cm. Appears within normal limits. Yolk sac: 5.1 mm. Appears within normal limits. Right ovary: N/V. Left ovary: Within normal limits. 2.8 x 1.4 x 1.9 cm. IMPRESSION: Single living intrauterine measuring 10 weeks 0 days and sonographic due date of 05/26/2025. Yolk sac is upper limits of normal measuring 5.2 mm. No subchorionic hemorrhage. Dickson Hernandez M.D. Diagnostic Radiologist [email or web address] SP/Dictated by: Dickson Hernandez MD @ 10/28/2024 3:13:00 PM (Electronically Signed)
== END 2024-10-28 14:04 | disposition home or self-care (01) ==
LOC: US 14:03
PROVIDERS: Visit Provider Advanced Practice Midwife
DX: Z34.91 Encounter for supervision of normal pregnancy, unspecified, first trimester (principal); Z3A.10 10 weeks gestation of pregnancy
CPT/HCPCS: 76817; 83021; 84439; 84443; 86703; 86706; 86803; 86850; 86900; 86901; 87086; 87340

== ENCOUNTER 2024-10-28 15:14 | Outpatient (CLI) | payer BC, SELFPAY | END 2024-10-28 15:15 | disposition home or self-care (01) | PROVIDERS: Visit Provider Advanced Practice Midwife | DX: Z34.91 Encounter for supervision of normal pregnancy, unspecified, first trimester (principal); Z3A.10 10 weeks gestation of pregnancy | CPT/HCPCS: 83020; 83021; 84439; 84443; 85660; 86592; 86703; 86704; 86706; 86762; 86787; 86803; 86850; 86900; 86901; 87086; 87340 ==

== ENCOUNTER 2024-11-27 14:45 | Outpatient (CLI) | payer BC, SELFPAY | END 2024-11-27 14:46 | disposition home or self-care (01) | PROVIDERS: Visit Provider Advanced Practice Midwife | DX: Z34.81 Encounter for supervision of other normal pregnancy, first trimester (principal); F41.8 Other specified anxiety disorders; Z83.49 Family history of other endocrine, nutritional and metabolic diseases | CPT/HCPCS: 84439; 84443 ==

== ENCOUNTER 2024-11-29 08:45 | Outpatient (CLI) | payer BC, SELFPAY | END 2024-11-29 08:46 | disposition home or self-care (01) | LOC: NFLDREF 12-04 01:12 | PROVIDERS: Visit Provider Advanced Practice Midwife | DX: N89.8 Other specified noninflammatory disorders of vagina (principal) | CPT/HCPCS: 81513; 87481; 87661 ==

== ENCOUNTER 2025-01-21 13:59 | Outpatient (CLI) | payer BC, SELFPAY ==
--- NOTE | 2025-01-21 14:00 | CRLHL7_ITS ---
For Patients: As a result of the Century Cures Act, medical imaging exams and procedure reports are released immediately into your electronic medical record. You may view this report before your referring provider. If you have questions, please contact your health care provider. INDICATION: 2nd trimester anatomical survey. TECHNIQUE: Ultrasound OB pelvis transabdominal. Real-time wallace-scale imaging of the fetus was performed as well as color Doppler and spectral Doppler analysis of the umbilical artery. COMPARISON: None. FINDINGS: Intrauterine gestation: Single. heart rate: Regular, 150 bpm. presentation: Breech. Placenta: Posterior, low-lying. Cervix: 3 cm. Amniotic fluid: Normal deepest pocket 6 cm. Biometry: Biparietal diameter: 22 weeks 5 days. Head circumference: 21 weeks 6 days. Abdominal circumference: 23 weeks 3 days. Femur length: 22 weeks 4 days. EFW: 543 gm, 96 %. Ultrasound age: 22 weeks 6 days. Ultrasound DANIEL: May 21, 2025. Anatomical Survey: 4 chamber heart: Visualized. Right/Left ventricular outflow tracts: Visualized. Stomach: Visualized. Kidneys: Visualized. Bladder: Visualized. Spine: Visualized. Sacrum: Visualized. 4 extremities: Visualized. Cord insertion: Visualized. 3V cord: Visualized. Face: Visualized. Nose: Visualized. Lips: Visualized. Cerebellum: Visualized. Cisterna Magna: Visualized. Lateral ventricles: Visualized. IMPRESSION: 1. Single viable intrauterine . 2. No intrinsic abnormalities noted on anatomic survey. 3. Posterior low-lying placenta 2 cm from the cervix. Dictated by Eben Lemus MD @ 01/24/2025 4:43:45 AM (Electronically Signed)
== END 2025-01-21 14:00 | disposition home or self-care (01) ==
LOC: US 13:59
PROVIDERS: Visit Provider Advanced Practice Midwife
DX: Z34.92 Encounter for supervision of normal pregnancy, unspecified, second trimester (principal); Z3A.22 22 weeks gestation of pregnancy
CPT/HCPCS: 76805; 76817

== ENCOUNTER 2025-01-21 15:51 | Outpatient (CLI) | payer BC, SELFPAY ==
[2025-01-21 19:07] LABS: Bacterial Vaginosis* Negative (Negative); Candida glab/krus NOT DETECTED (No Detected)
== END 2025-01-21 15:52 | disposition home or self-care (01) ==
LOC: NFLDREF 15:52
PROVIDERS: Visit Provider Advanced Practice Midwife
DX: O26.892 Other specified pregnancy related conditions, second trimester (principal); N89.8 Other specified noninflammatory disorders of vagina; Z3A.21 21 weeks gestation of pregnancy
CPT/HCPCS: 76805; 81513; 87481; 87661

== ENCOUNTER 2025-03-04 13:47 | Outpatient (CLI) | payer BC, SELFPAY | END 2025-03-04 13:48 | disposition home or self-care (01) | LOC: NFLDREF 03-05 13:19 | PROVIDERS: Visit Provider Advanced Practice Midwife | DX: Z34.82 Encounter for supervision of other normal pregnancy, second trimester (principal); Z83.49 Family history of other endocrine, nutritional and metabolic diseases | CPT/HCPCS: 84443; 86592 ==

== ENCOUNTER 2025-03-04 13:50 | Outpatient (CLI) | payer BC, SELFPAY ==
--- NOTE | 2025-03-04 14:00 | CRLHL7_ITS ---
For Patients: As a result of the Century Cures Act, medical imaging exams and procedure reports are released immediately into your electronic medical record. You may view this report before your referring provider. If you have questions, please contact your health care provider. OB ULTRASOUND LMP: 08/23/2024. DANIEL by LMP: 05/30/2025. GA: 27 w, 4 d. Single. Comparison: 01/21/2025. INDICATION: Low-lying placenta. TECHNIQUE: Real time grayscale imaging of the fetus was performed. Transabdominal and transvaginal. Transvaginal imaging was performed to better demonstrate the cervix. CERVIX: Visualized. TV Measurement: 3.1 cm. POSITIONING: Vertex. AMNIOTIC FLUID: 4.3 cm. SDP (N: greater than 2 x 1 cm) PLACENTA: Technique: Transabdominal. PLACENTA POSITION: Posterior. DOPPLER: heart rate: 139 bpm. IMPRESSION: With transvaginal technique, the edge of the posterior placenta is located 4.3 cm from the internal cervical os. Cervix is closed and measures 3.1 cm. Dickson Hernandez M.D. Diagnostic Radiologist [email or web address] HANG/reece newell/Dictated by: Dickson Hernandez MD @ 03/04/2025 4:28:00 PM (Electronically Signed)
== END 2025-03-04 13:51 | disposition home or self-care (01) ==
LOC: US 13:50
PROVIDERS: Visit Provider Advanced Practice Midwife
DX: O44.42 Low lying placenta NOS or without hemorrhage, second trimester (principal); Z3A.27 27 weeks gestation of pregnancy
CPT/HCPCS: 76816; 76817

== ENCOUNTER 2025-03-13 08:08 | Outpatient (CLI) | payer BC, SELFPAY | END 2025-03-13 08:09 | disposition home or self-care (01) | LOC: NFLDREF 03-18 06:42 | PROVIDERS: Visit Provider Advanced Practice Midwife | DX: R73.09 Other abnormal glucose (principal); Z34.93 Encounter for supervision of normal pregnancy, unspecified, third trimester | CPT/HCPCS: 82951; 82952 ==

== ENCOUNTER 2025-03-17 11:23 | Outpatient (CLI) | payer BC, SELFPAY ==
--- NOTE | 2025-03-17 11:30 | CRLHL7_ITS ---
For Patients: As a result of the Century Cures Act, medical imaging exams and procedure reports are released immediately into your electronic medical record. You may view this report before your referring provider. If you have questions, please contact your health care provider. OB ULTRASOUND FOLLOW-UP 03/17/2025 CLINICAL HISTORY: GDM. Follow-up growth. TECHNIQUE: Real time wallace scale imaging of the fetus was performed. Transabdominal imaging performed. COMPARISON: 03/04/2025, 01/21/2025, 10/28/2024. FINDINGS: LMP: 08/23/2024. DANIEL by LMP: 05/30/2025. GA: 29 weeks 3 days. Gestation: Single. Positioning: Vertex. Amniotic Fluid: 3.5 cm SDP. Placenta: Technique: TA. Placenta Position: Posterior. Dopplers: Heart Rate: 147 bpm. BIOMETRY: BPD: 7.9 cm, 31 weeks 4 days. 91.9% HC: 28.6 cm, 31 weeks 3 days. 73.1% AC: 27.4 cm, 31 weeks 3 days. 93.9% FL: 5.8 cm, 30 weeks 1 day. 55.1% FL/AC Ratio: 21.0% HC/AC Ratio: 1.0. EFW: 1690 grams, 3 lb 12 oz. Age by this US: 31 weeks 1 day. DANIEL by this US: 05/18/2025. Percentile by DANIEL: 89.9% IMPRESSION: 1. Sonographic gestational age 31 weeks 1 day and sonographic due date 05/18/2025. Sonographic age is 12 days ahead of the clinical age. 2. Estimated weight 90th percentile. Abdominal circumference 93%. Dickson Hernandez M.D. Diagnostic Radiologist [email or web address] Transcribed: 1:28 pm DW/Dictated by: Dickson Hernandez MD @ 03/17/2025 12:45:00 PM (Electronically Signed)
== END 2025-03-17 11:24 | disposition home or self-care (01) ==
PROVIDERS: Visit Provider Midwife
DX: O24.419 Gestational diabetes mellitus in pregnancy, unspecified control (principal); O36.5930 Maternal care for other known or suspected poor fetal growth, third trimester, not applicable or unspecified; Z3A.29 29 weeks gestation of pregnancy
CPT/HCPCS: 76816

== ENCOUNTER 2025-03-31 11:23 | Outpatient (CLI) | payer BC, SELFPAY ==
[2025-03-31 15:36] LABS: Bacterial Vaginosis* POSITIVE (Negative); Candida glab/krus NOT DETECTED (No Detected)
== END 2025-03-31 11:24 | disposition home or self-care (01) ==
LOC: NFLDREF 11:25
PROVIDERS: Visit Provider Midwife
DX: N89.8 Other specified noninflammatory disorders of vagina (principal)
CPT/HCPCS: 81513; 87481; 87661

== ENCOUNTER 2025-04-14 12:50 | Outpatient (CLI) | payer BC, SELFPAY ==
--- NOTE | 2025-04-14 13:00 | CRLHL7_ITS ---
For Patients: As a result of the Century Cures Act, medical imaging exams and procedure reports are released immediately into your electronic medical record. You may view this report before your referring provider. If you have questions, please contact your health care provider. LMP: 08/23/2024. DANIEL by LMP or US: 05/30/2025. GA: 33w, 3d. Single. Comparison: 03/17/2025, 03/04/2025, 01/21/2025. INDICATION: Gestational diabetes mellitus. CERVIX: Not visualized. POSITIONING: Vertex. AMNIOTIC FLUID: 6.5 cm SDP. PLACENTA: Technique: Transabdominal. PLACENTA POSITION: Posterior right wall. heart rate: 134 bpm. BIOMETRY: BPD: 8.7 cm. 35w, 0d, 85.9 percent. HC: 31.1 cm. 34w, 5d, 47.2 percent. AC: 31.2 cm. 35w, 1d, 91.5 percent. FL: 6.4 cm. 33w, 0d, 26.9 percent. FL/AC ratio: 20.4 percent. HC/AC ratio: 1.0. EFW: 2446 g. Weight: 5 lbs, 6 oz. age by this US: 34w, 3d. DANIEL by this US: 05/23/2025. Percentile by DANIEL: 74.9 percent. IMPRESSION: 1. Sonographic gestational age 34 weeks 3 days and sonographic due date 05/23/2025. Sonographic age is 7 days ahead of the clinical age. 2. Estimated weight 75th percentile. Abdominal circumference 92nd percentile. Dickson Hernandez M.D. Diagnostic Radiologist [email or web address] bM/Dictated by: Dickson Hernandez MD @ 04/14/2025 8:55:00 PM (Electronically Signed)
== END 2025-04-14 12:51 | disposition home or self-care (01) ==
LOC: US 12:50
PROVIDERS: Visit Provider Midwife
DX: O24.419 Gestational diabetes mellitus in pregnancy, unspecified control (principal); O36.63X0 Maternal care for excessive fetal growth, third trimester, not applicable or unspecified; Z3A.33 33 weeks gestation of pregnancy
CPT/HCPCS: 76816

== ENCOUNTER 2025-04-18 13:30 | Outpatient (CLI) | payer BC, SELFPAY ==
--- NOTE | 2025-04-18 13:45 | CRLHL7_ITS ---
For Patients: As a result of the Cures Act, medical imaging exams and procedure reports are released immediately into your electronic medical record. You may view this report before your referring provider. If you have questions, please contact your health care provider. OB ULTRASOUND BIOPHYSICAL PROFILE, TRANSABDOMINAL LMP: 08/23/2024. DANIEL by LMP: 05/30/2025. GA: 34 w, 0 d. Single. Comparison: None. INDICATION: GDM. TECHNIQUE: Real time wallace scale imaging of the fetus was performed. Transabdominal imaging performed. CERVIX: Not visualized. POSITIONING: Vertex. AMNIOTIC FLUID: 6.6 cm SDP (N: greater than 2 x 1 cm) BIOPHYSICAL PROFILE: Gross body movements: 2. tone: 2. Respiratory activity: 2. Amniotic fluid: 2. SDP (N: greater than 2 x 1 cm). Total score: 8. PLACENTA: Technique: Transabdominal. PLACENTA POSITION: Posterior. DOPPLER: heart rate: 130 bpm. IMPRESSION: Normal biophysical profile 02/07. Dickson Hernandez M.D. Diagnostic Radiologist [email or web address] SP/Dictated by: Dickson Hernandez MD @ 04/21/2025 11:17:00 AM (Electronically Signed)
== END 2025-04-18 13:31 | disposition home or self-care (01) ==
LOC: US 13:31
PROVIDERS: Visit Provider Physician Assistant
DX: O24.419 Gestational diabetes mellitus in pregnancy, unspecified control (principal); Z3A.34 34 weeks gestation of pregnancy; O26.893 Other specified pregnancy related conditions, third trimester; N89.8 Other specified noninflammatory disorders of vagina; R35.0 Frequency of micturition
CPT/HCPCS: 76819

== ENCOUNTER 2025-04-18 15:15 | Outpatient (CLI) | payer BC, SELFPAY | END 2025-04-18 15:16 | disposition home or self-care (01) | PROVIDERS: Visit Provider Obstetrics & Gynecology | DX: O26.893 Other specified pregnancy related conditions, third trimester (principal); N89.8 Other specified noninflammatory disorders of vagina; R35.0 Frequency of micturition; Z3A.34 34 weeks gestation of pregnancy | CPT/HCPCS: 87086 ==

== ENCOUNTER 2025-04-25 13:28 | Outpatient (CLI) | payer BC, SELFPAY ==
--- NOTE | 2025-04-25 13:45 | CRLHL7_ITS ---
For Patients: As a result of the Cures Act, medical imaging exams and procedure reports are released immediately into your electronic medical record. You may view this report before your referring provider. If you have questions, please contact your health care provider. OB ULTRASOUND DANIEL by LMP: 05/30/2025. GA: 35 w, 0 d. Single. Comparison: 04/18/2025, 04/14/2025, 03/17/2025. INDICATION: GDM2. TECHNIQUE: Real time grayscale imaging of the fetus was performed. Transabdominal. CERVIX: Not visualized. POSITIONING: Vertex. AMNIOTIC FLUID: 5.0 cm. SDP (N: greater than 2 x 1 cm) BIOPHYSICAL PROFILE: 2: Gross body movements 2: tone 2: Respiratory activity 2: Amniotic fluid SDP (N: greater than 2 x 1 cm) 8/8: Total score PLACENTA: Technique: Transabdominal. PLACENTA POSITION: Posterior, right wall. DOPPLER: heart rate: 128 bpm. IMPRESSION: Normal biophysical profile score 8/8. Dickson Hernandez M.D. Diagnostic Radiologist [email or web address] HANG/reece newell/Dictated by: Dickson Hernandez MD @ 04/25/2025 4:34:00 PM (Electronically Signed)
== END 2025-04-25 13:29 | disposition home or self-care (01) ==
LOC: US 13:29
PROVIDERS: Visit Provider Physician Assistant
DX: O24.419 Gestational diabetes mellitus in pregnancy, unspecified control (principal); Z3A.35 35 weeks gestation of pregnancy
CPT/HCPCS: 76819

== ENCOUNTER 2025-04-30 13:48 | Outpatient (CLI) | payer BC, SELFPAY ==
--- NOTE | 2025-04-30 14:00 | CRLHL7_ITS ---
For Patients: As a result of the Century Cures Act, medical imaging exams and procedure reports are released immediately into your electronic medical record. You may view this report before your referring provider. If you have questions, please contact your health care provider. INDICATION: Gestational diabetes mellitus 2. COMPARISON: OB ultrasound 04/25/2025. TECHNIQUE: Ultrasound OB pelvis transabdominal. Real time grayscale imaging of the fetus was performed without non-stress testing. FINDINGS: Sonographic imaging demonstrates a single living intrauterine gestation. heart rate measures 137 beats per minute. The fetus has a cephalic orientation. The placenta lies posteriorly. Single deepest pocket measures 3.8 cm. breathing movements: 2/2 Gross body movements: 2/2 tone: 2/2 Amniotic fluid volume: 2/2 Total: 02/07 IMPRESSION: Normal biophysical profile score 8 out of 8. Dictated by Catherine Horowitz MD @ 05/01/2025 4:47:36 AM (Electronically Signed)
== END 2025-04-30 13:49 | disposition home or self-care (01) ==
LOC: US 13:49
PROVIDERS: Visit Provider Physician Assistant
DX: O24.419 Gestational diabetes mellitus in pregnancy, unspecified control (principal)
CPT/HCPCS: 76819

== ENCOUNTER 2025-04-30 14:39 | Outpatient (CLI) | payer BC, SELFPAY ==
[2025-05-01 15:23] LABS: Strep B DNA Probe Negative (Negative)
[2025-05-01 15:32] LABS: Strep B Susceptibility Needed? No
== END 2025-04-30 14:40 | disposition home or self-care (01) ==
LOC: NFLDREF 14:39
PROVIDERS: Visit Provider Obstetrics & Gynecology
DX: Z34.93 Encounter for supervision of normal pregnancy, unspecified, third trimester (principal)
CPT/HCPCS: 87081; 87653

== ENCOUNTER 2025-05-09 09:25 | Outpatient (CLI) | payer BC, SELFPAY ==
--- NOTE | 2025-05-09 10:00 | CRLHL7_ITS ---
For Patients: As a result of the Century Cures Act, medical imaging exams and procedure reports are released immediately into your electronic medical record. You may view this report before your referring provider. If you have questions, please contact your health care provider. OB ULTRASOUND BIOPHYSICAL PROFILE CLINICAL HISTORY: GDM2. TECHNIQUE: Real time wallace scale imaging of the fetus was performed. Transabdominal imaging performed. FINDINGS: DANIEL by LMP: 05/30/2025. GA: 37 weeks 0 days. Cervix: Not visualized. Positioning: Vertex. Amniotic Fluid: 5.8 cm SDP. BIOPHYSICAL PROFILE Gross Body Movements: 2 Tone: 2 Respiratory Activity: 2 Amniotic Fluid SDP: 2 Total Score: 8 Placenta: Technique: TA. Placenta Position: Posterior. Dopplers: Heart Rate: 109-114 bpm. IMPRESSION: 1. Normal biophysical profile score of 8/8. 2. heart rate ranges between 109-114 bpm. Dickson Hernandez M.D. Diagnostic Radiologist [email or web address] Transcribed: 2:36 pm DW/Dictated by: Dickson Hernandez MD @ 05/09/2025 1:50:00 PM (Electronically Signed)
== END 2025-05-09 09:26 | disposition home or self-care (01) ==
LOC: US 09:25
PROVIDERS: Visit Provider Physician Assistant
DX: O24.419 Gestational diabetes mellitus in pregnancy, unspecified control (principal); Z3A.37 37 weeks gestation of pregnancy
CPT/HCPCS: 76819

== ENCOUNTER 2025-05-16 08:21 | Outpatient (CLI) | payer BC, SELFPAY ==
--- NOTE | 2025-05-16 08:15 | CRLHL7_ITS ---
For Patients: As a result of the Century Cures Act, medical imaging exams and procedure reports are released immediately into your electronic medical record. You may view this report before your referring provider. If you have questions, please contact your health care provider. OB ULTRASOUND BIOPHYSICAL PROFILE CLINICAL HISTORY: GDMA2. TECHNIQUE: Real time wallace scale imaging of the fetus was performed. Transabdominal imaging performed. FINDINGS: DANIEL by LMP: 05/30/2025. GA: 38 weeks 0 days. Gestation: Single. Cervix: Not visualized. Positioning: Vertex. Amniotic Fluid: 5.6 cm SDP. BIOPHYSICAL PROFILE Gross Body Movements: 2 Tone: 2 Respiratory Activity: 2 Amniotic Fluid SDP: 2 Total Score: 8 Placenta: Technique: TA. Placenta Position: Posterior, right wall. Dopplers: Heart Rate: 144 bpm. BIOMETRY BPD: 9.5 cm, 38 weeks 4 days. 83.9% HC: 33.3 cm, 38 weeks 0 days. 28.5% AC: 33.6 cm, 37 weeks 4 days. 53.9% FL: 7.1 cm, 36 weeks 3 days. 15.4% FL/AC Ratio: 21.1% HC/AC Ratio: 1.0. EFW: 3201 grams, 7 lb 1 oz. Age by this US: 37 weeks 5 days. DANIEL by this US: 06/01/2025. Percentile by DANIEL: 46.6% IMPRESSION: 1. Sonographic gestational age 37 weeks 5 days and sonographic due date 06/01/2025. Good correlation with dates. Normal interval growth. 2. Estimated weight 47th percentile. Abdominal circumference 54th percentile. 3. Biophysical profile 02/07. Dickson Hernandez M.D. Diagnostic Radiologist [email or web address] Transcribed: 9:59 am DW/Dictated by: Dickson Hernandez MD @ 05/16/2025 9:28:00 AM (Electronically Signed)
== END 2025-05-16 08:22 | disposition home or self-care (01) ==
LOC: US 08:21
PROVIDERS: Visit Provider Physician Assistant
DX: O24.419 Gestational diabetes mellitus in pregnancy, unspecified control (principal); Z3A.37 37 weeks gestation of pregnancy
CPT/HCPCS: 76816; 76819

== ENCOUNTER 2025-05-21 10:45 | Outpatient (CLI) | payer BC, SELFPAY ==
[2025-05-21 10:56] VITALS: PULSE 91; O2SAT 99
[2025-05-21 11:03] VITALS: BP 120/74; PULSE 82
[2025-05-21 11:36] VITALS: TEMP 36.5
[2025-05-21 11:39] LABS: Amnisure Rom* Negative
--- NOTE | 2025-05-21 12:40 | PC.OBNST ---
NST Note NST Note Start: 05/21/25 10:50 Freq: ONCE Status: Active Protocol: Document 05/21/25 12:37 SUNIL (Rec: 05/21/25 12:39 SUNIL [email or web address]) NST Note 2 Para (# of births) 0 EDC 05/30/25 Gestational Age In 38 Weeks & 5 Days Weeks & Days High Risk Factors Diabetes - Gestational Insulin Patient Presented Leaking fluid with Complaint(s) of Other Complaints Amnisure Negative Reactive Yes Appropriate for Yes Gestational Age ANDREW Cantu Date 05/21/25 Reactive Yes Appropriate for Yes Gestational Age ANDREW Bolivar Date 05/21/25 OB NST charge Yes Complete NST Note Yes via Write Note The provider's electronic signature indicates the NST is reactive/appropriate for gestational age. *Note to provider: If an addendum is required, open the patient's chart and click on the note under the Nurse/Allied Health tab.
== END 2025-05-21 12:20 | disposition home or self-care (01) ==
LOC: OB OUT 10:45 → OB 10:45
PROVIDERS: Visit Provider Obstetrics & Gynecology
DX: O47.1 False labor at or after 37 completed weeks of gestation (principal); O24.419 Gestational diabetes mellitus in pregnancy, unspecified control; Z3A.28 28 weeks gestation of pregnancy
CPT/HCPCS: 59025; 84112; G0463

== ENCOUNTER 2025-05-23 03:56 | Inpatient (IN) | payer BC, SELFPAY ==
[2025-05-23] VITALS (21 sets, daily range): BP systolic 101–129; BP diastolic 55–76; PULSE 81–139; RESP 15–18; TEMP 36.6–37.1; O2SAT 98; BMI 28.0
--- NOTE | 2025-05-23 04:00 | P.LDBA_ITS ---
Subjective History of Present Illness Narrative: Patient is being admitted to Labor and Delivery for spontaneous rupture of membranes. She is a 30 year old at 39w0d gestation. Her full history and physical was dictated by myself on 05/09. Please see this for details. is complicated by GDM A2, suburethral cyst, low-lying placenta that has resolved, depression/anxiety, genital HSV (on suppression). Debra notes gross rupture of membranes of clear fluid at about 0130. She initially did not have contractions, but has subsequently noted onset of contractions about every 3-5 minutes. Rates pain as an 8/10. Denies vaginal bleeding. Endorses active movement. She did take her insulin last night. Specific Issues/Plans G2 P 0010 : diya Lucia age 13, It is a girl! H&P completed by Tameka on 05/09 #GDMA2 04/14 sent to [facility] for probable insulin treatment * Nutrition consult?-ordered 03/13/25 * Diabetic Ed 04/15/2025: 12 U NPH at HS * Weekly testing starting at time insulin initiation * testing order form completed 04/15/2025 * Growth US every 4 weeks starting at 28 weeks? * 29 wks EFW 89.9% * 33 weeks EFW 74.9% * 38 weeks: EFW 47% * Delivery recommended 39 0/7-39 6/7 weeks?- wants to avoid IOL, understands latest recommended is 39w5d into 39w6d GA * Please sign/schedule IOL at 38 weeks: [X] #Suburethral mass diagnosed at 34 weeks - palpates like a cyst, no inflammation/erythema/drainage - f/u UA/UC [x] Urology says no contraindication to vaginal delivery - Plan f/u 2 months PP for surgical removal # Low-Lying Placenta at 2.0 cm-Resolved 03/04/25 ? #Low TSH (<0.015) with slightly elevated T4 (2.05). Family hx thyroid disease. Repeat at 13.5 wks, TSH (0.171), Free T4 (1.16) Repeat TSH at 28 wks (0.403) # Depression/Anxiety (10/28/24) BASIL: 8 PHQ 9: 11???New home, moving , newly , feels in a good place with mood. no medications currently. (02/19/2025) PHQ: 14 BASIL: 12 see note # Hx of recurrent vaginal infections Bacterial Vaginosis treatment 10/26, was initially treated for yeast infection mycoplasma/Ureaplasma culture-negative. 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 Encouraged her to find out if employer has MSDS sheets, use PPE, and ensure good ventilation. If questions on specific chemicals will message or bring to next appointment. # EFW 96% at 20 weeks, consider growth with any concerns with fundal heights #Failed 1 hr GTT, ? Pap: 03/14/2023 (NIL) 1st trimester: (10/14/24) IMPRESSION: Single living intrauterine measuring 10 weeks 0 days and sonographic due date of 05/26/2025. Yolk sac is upper limits of normal measuring 5.2 mm. No subchorionic hemorrhage. Anatomy scan (01/21/2025): 1. Single viable intrauterine . 2. No intrinsic abnormalities noted on anatomic survey. 3. Posterior low-lying placenta 2 cm from the cervix. 03/04/25: edge of the posterior placenta is located 4.3 cm from the internal cervical os. Cervix is closed and measures 3.1 cm. 03/17/25: 1. Sonographic gestational age 31 weeks 1 day and sonographic due date 05/18/2025. Sonographic age is 12 days ahead of the clinical age. 2. Estimated weight 90th percentile. Abdominal circumference 93%. 04/14/25:Sonographic gestational age 34 weeks 3 days and sonographic due date 05/23/2025. Sonographic age is 7 days ahead of the clinical age. Estimated weight 75th percentile. Abdominal circumference 92nd percentile. 05/16/25: Vertex, EFW 3201 g or 7 lb 1 oz (47%), BPD 84%, HC 29%, AC 54%, FL 15%, SDP 5.6 cm. Note: Difficult to obtain head measurements as it was low in the pelvis. COVID: Declined Flu: Declined TDAP: declined RSV: declined 32wk Mental Health: 04/18/25 Hgb: 04/14/25 GBS: negative OB - Problem Based A/P Additional Plan (1) Suburethral cyst: Problem details: Sub-urethral cyst vs diverticulum diagnosed at 34 weeks Status: Acute (2) GDM, class A2: Status: Acute (3) Anxiety: Status: Acute (4) Depression: Status: Acute (5) Genital HSV: Status: Acute Plan Debra is being admitted to Labor and Delivery for spontaneous rupture of membranes with spontaneous onset of labor. She is a 30 year old at 39w0d gestation. Her full history and physical was dictated by myself on 05/09. Please see this for details. is complicated by GDM A2, suburethral cyst, low-lying placenta that has resolved, depression/anxiety, genital HSV (on suppression). - SROM occurred at 0130 with clear fluid, grossly ruptured and doretha painfully Q 3-5 minutes on arrival. Cervix is 2/60/-2 by RN exam. - Admit to Labor and Delivery - Continue expectant management at this time, will augment as needed pending future exams - Patient did take her home NPH insulin yesterday evening. Plan BG checks and SSI per GDM policy. - EFW by US on 05/16 was 3201 g at 46.6%, AC 54% - BT O+ - GBS negative - On valtrex for HSV ppx, no lesions or prodromal symptoms noted - Pain control per patient preference/anesthesia Care to be assumed by Dr. Khalil at 0700. OB Exam Physical Exam Narrative: General: Alert and oriented, in distress and breathing through contractions Abdomen: Gravid. Vertex confirmed on ultrasound. Cervix: 2/60/-2 per RN exam with gross rupture of clear fluid noted heart rate: Category 1, baseline 135 beats per minute, moderate variability, 10 x 10 accelerations seen, no decelerations. Ethel: Contractions q3-5m
[2025-05-23 04:27] LABS: Hematocrit* 40.0 % (33.0-51.0); Hemoglobin* 14.0 gm/dL (12.0-16.0); Immature Granulocytes Abs Auto 0.06 K/uL (0.00-0.30); Immature Granulocytes Pct Auto 0.6 %; Mean Corpuscular HGB Conc 35 gm/dL (32-36); Mean Corpuscular Hemoglobin 32 pg (26-34); Mean Corpuscular Volume 92 fL (80-100); RDW Coefficient of Variation % 12.4 % (11.5-15.5); Red Blood Count* 4.37 m/uL (4.00-5.20); White Blood Count* 10.61 K/uL (4.50-11.00)
[2025-05-23 04:28] LABS: Lymphocytes Absolute Auto 1.50 K/uL (0.90-2.90)
[2025-05-23 04:29] LABS: Slide Review Reflex No
[2025-05-23] MEDS: LACTATED RINGERS 1000 ML 1,000 ML 500 ML IV (08:15)
[2025-05-23] MEDS: INSULIN ASPART 100 UNIT/ML SUBCUT ×2 (08:24→10:43)
[2025-05-23] MEDS: OXYTOCIN 30 unit/500 ML in NS 30 UNIT/500 ML BAG 300 UNIT IVPB (14:50)
[2025-05-23] MEDS: CEFAZOLIN 2 GM in 0.9 % SODIUM CHLORIDE Mini-bag 100 ML IVPB (15:24)
[2025-05-23] MEDS: LIDOCAINE 1 % PF 30 ML INJECTION (15:30)
--- NOTE | 2025-05-23 17:13 | W.PM.VAGDE_ITS ---
OB Procedure Vag Delivery Mother Details Mother Details: The patient is a 30 year-old, 2, Para 0, admitted on 05/23/25 at 39 0/7 Days gestation. Patient was admitted after SROM at around 0130 this morning. complicated by GDMA2, suburethral cyst, low-lying placenta that has resolved, depression/anxiety, genital HSV (on suppression). : 2 Para: 1 Weeks Gestation: 39 Admission Date: 05/23/25 Additional Details Amniotic Membrane Status: SROM Amniotic Membrane Rupture Date: 05/23/25 Amniotic Membrane Rupture Time: 01:30 Amniotic Membrane Fluid Description: Clear Analgesia/Anesthesia Type: None Waterbirth: No Pitcoin: No Intrapartal Events: None Labor Onset: 05:00 Complete: 13:02 Pushin:05 Heart: heart tones during second stage were category 2 with recurrent variables while pushing, accelerations noted between contractions. Delivery Details Delivery Date: 05/23/25 Delivery Time: 14:26 Route of delivery: Gender: Female Viability: Alive; Heart Rate Present Position at Delivery: OA Delivery Details: Delivered via spontaneous vaginal delivery. was placed on maternal abdomen.? Cord was clamped and cut after the cord was white and not pulsing as per patient's request. Nose and mouth were bulb suctioned.? weight pending. Patient was found to be 2cm dilated upon admission and doretha regularly. Patient continued to experience painful uterine contractions and continued to make cervical change. Patient was continuously moving and trying different positions. 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 Patient desired the least amount of interventions. This was complicated by history of GDMA2 and she did require coverage with subcutaneous insulin twice during active phase of labor. During the day there were episodes that tracing remained category 2 but it impr cisco with resuscitative measures like position changes and IVFs. Patient continued to make excellent progress, became fully dilated and pushed effectively. Patient desired an unmedicated delivery. Head delivered on hands and knees on labor mattress on the floor, nuchal cord identified and I attempted to reduce it but I was unable to do so, I then assisted delivery and delivery of the anterior should was noted but the posterior shoulder did not deliver easily mostly because of the umbilical cord and I then recommended for her to lay in bed and supine I was able to reduce the cord and posterior shoulder delivered afterwards after Lorelei positioning. 1 Minute Interval Total Score: 8 5 Minute Interval Total Score: 9 Additional Details Shoulder Dystocia: Yes (Of the posterior shoulder- resolved with Lorelei) Placenta Delivery Time: 15:09 Placental Delivery Description: Spontaneous (It did take some time for delivery but eventually detached with continued gentle traction, placenta noted to have an accessory lobe, inspection found to be complete. ) Delivery repair: Vicryl Procedure Done: Global Blood Loss: 500 Laceration: Perineal - 3rd Degree (3a) Episiotomy Description: None Blood Loss Measurement Type: EBL Bakri Used: No Sponge/Need Count Correct: Yes Cord Vessel Description: 3 Vessels, Nuchal Cord and Reduced Event Summary Status: Mother and were stable after delivery. Patient had a perineal 3a laceration repaired. I did recommend 1 dose of Ancef as prophylaxis. Recommend to avoid constipation and straining. She also had a left periurethral laceration that extended to the left labia minora, completely the left labia minora from the clitoral kaufman. I explained to patient that we could try to repair in the room under local and she was able to tolerate completion of procedure well. I did place a red rubber bladder catheter and this was kept in place during repair for continued identification of urethra and avoidance of placing suture material in the urethra. Utilizing Vicryl 4-0 in a interrupted manner laceration was repaired. Bladder catheter was removed after completion. Suburethral cyst was always noted to be intact. Disposition: floor
[2025-05-23] MEDS: IBUPROFEN 600 MG TABLET PO (18:30)
[2025-05-24] VITALS (8 sets, daily range): BP systolic 91–105; BP diastolic 56–68; PULSE 82–104; RESP 16; TEMP 36.4–36.6; O2SAT 98
[2025-05-24] MEDS: IBUPROFEN 600 MG TABLET PO ×2 (01:39→08:27)
[2025-05-24 06:36] LABS: Hemoglobin* 11.2 gm/dL (12.0-16.0)
[2025-05-24] MEDS: DOCUSATE SODIUM 100 MG CAPSULE PO (08:27)
--- NOTE | 2025-05-24 11:08 | PM.OBPNVD1 ---
OB - PN:Subj Subjective Date Seen: 05/24/25 Patient comments OB post-: no complaints and tolerating diet status: and doing well feeding status: exclusively Narrative: The patient is a 30-year-old 2 para 1011 who is day 1. Following a spontaneous vaginal delivery. She generally feels well. She is working on , and also doing some breast pumping to encourage supply. She had a third-degree laceration with the delivery, and her pains been well controlled. She is mildly anemic, with a hemoglobin today of 11.2. Fasting blood sugar this morning was 111. had been complicated by GDM A2. She also has a history of a suburethral mass, and post follow-up with Urology for evaluation and excision of the mass was recommended. OB - PN: Obj Exam Physical Exam: Vital signs: Temp Pulse Resp BP Pulse Ox O2 Del Method 97.9 F 97 16 100/60 98 Room Air 05/24/25 08:05 05/24/25 08:05 05/24/25 08:05 05/24/25 08:05 05/24/25 08:05 05/24/25 08:05 Constitutional: Constitutional: no acute distress Routine Neck Exam: Neck: Present normal inspection Routine Respiratory Exam: Respiratory: Present CTA bilaterally; Absent respiratory distress Routine Cardiovascular Exam: Cardiovascular: Present RRR; Absent murmur Routine Abdominal Exam: Abdominal: Present soft; Absent tenderness Fundus: Present firm Routine Extremities Exam: Extremities: Present normal inspection and pedal edema; Absent calf tenderness Routine Neurological Exam: Neurological: Present alert and oriented X3 Routine Psychiatric Exam: Psychiatric: Present normal affect OB - PN: Obj Data Labs Labs: Laboratory Results - last 24 hr 05/24/25 06:26 Hgb 11.2 L OB - PN: A/P Delivery Assessment and Plan (1) Suburethral cyst: Problem details: Sub-urethral cyst vs diverticulum diagnosed at 34 weeks Status: Acute (2) GDM, class A2: Status: Acute (3) Anxiety: Status: Acute (4) Depression: Status: Acute (5) Genital HSV: Status: Acute Plan day: 1 Plan: routine care Comments: Anticipate discharge tomorrow.
[2025-05-24] MEDS: ACETAMINOPHEN 500 MG TABLET 1000 MG PO ×2 (12:15→19:45)
[2025-05-24] MEDS: BENZOCAINE/MENTHOL SPRAY 85 GM AEROSOL 1 APPLIC TOPICAL (19:46)
[2025-05-25] MEDS: IBUPROFEN 600 MG TABLET PO (04:25)
[2025-05-25 04:26] VITALS: BP 100/66; PULSE 83; RESP 16; TEMP 36.6; O2SAT 98
[2025-05-25 07:31] LABS: Glucose 2 Hour 153 mg/dl (70-155)
[2025-05-25] MEDS: ACETAMINOPHEN 500 MG TABLET 1000 MG PO (08:22)
[2025-05-25] MEDS: DOCUSATE SODIUM 100 MG CAPSULE PO (08:23)
[2025-05-25 08:25] VITALS: BP 101/65; PULSE 86; RESP 16; TEMP 36.6; O2SAT 98
--- NOTE | 2025-05-25 10:14 | P.DS_ITS ---
DS: Providers Provider Date Seen: 05/25/25 Date of admission: 05/23/25 03:56 Primary care physician: Not a Local Provider Admitting Clinician: Cristina English MD Attending Physician on discharge: Ellyn Lu MD Date of Discharge: 05/25/25 DS: Diagnosis Discharge Diagnosis (1) Status post normal vaginal delivery: Status: Acute (2) GDM, class A2: Status: Acute (3) Suburethral cyst: Status: Acute Problem details: Sub-urethral cyst vs diverticulum diagnosed at 34 weeks Exam Const: Vital Signs, click to edit/add: Vital Signs - 24 hr 05/24/25 12:53 05/24/25 17:24 05/24/25 19:49 Temperature 97.8 F 97.5 F L 97.5 F L Pulse Rate 104 H Pulse Rate [Blood Pressure Cuff] 91 82 Respiratory Rate 16 16 16 Blood Pressure 99/63 Blood Pressure [Le ft Arm] 105/65 102/65 Pulse Oximetry 98 98 98 Oxygen Delivery Me thod Room Air Room Air 05/24/25 19:52 05/25/25 04:26 05/25/25 08:25 Temperature 97.5 F L 97.8 F 97.9 F Pulse Rate Pulse Rate [Blood Pressure Cuff] 103 H 83 86 Respiratory Rate 16 16 16 Blood Pressure Blood Pressure [Le ft Arm] 99/63 100/66 101/65 Pulse Oximetry 98 98 98 Oxygen Delivery Me thod Room Air Room Air Room Air Documenting provider has reviewed patient's vital signs: yes Common normals: no apparent distress and oriented x3 General appearance: cooperative and comfortable Resp: Common normals: normal respiratory effort Cardio: Common normals: regular rate Rate: regular rate GI: Common normals: soft to palpation and non-tender Inspection: normal to inspection Palpation: soft Extremity: Common normals: normal to inspection and no pedal edema Neuro: Common normals: oriented x3 Psych: Common normals: affect normal OB - DS: Summary Hospital Course Hospital Course: The patient is a 30 year old G 2 now P 1011 that was admitted to the Center on 05/23/25 for spontaneous rupture membranes at 39 0/7 weeks gestation . She had an uncomplicated vaginal delivery. She delivered a viable female . She is breast feeding. the patient has done well. Peripartum Data Infant delivery method: Vaginal Laceration description: Perineal - 3rd Degree Episiotomy description: None Infant Gender: Female Discharge Plan: Home Status at Discharge Functional status at discharge: independent ambulation Overall status at discharge: patient is back to baseline Time Spent with Patient Time attestation: Total time spent providing and/or coordinating discharge services: Discharge Plan Discharge Disposition: Home, Self-Care Date of Admission: 05/23/25 03:56 Attending Provider on Discharge: Ellyn Lu Primary Care Provider: Provider,Not a Local Condition: Stable Anticipated Discharge Date/Time: 05/25/25 10:19 Discharge Medications: New docusate sodium 100 mg Capsule 100 mg PO DAILY Qty: 30 0RF ibuprofen 600 mg Tablet 600 mg PO Q6H PRNQty: 30 0RF Continued alcohol swabs [Alcohol Pads] Pads, Medicated 2 pad topical DAILY Qty: 100 1RF valacyclovir 500 mg tablet 500 mg PO BID 30 Days Qty: 60 1RF PNV no.95-ferrous fumarate-FA [ Multivitamins] 28 mg iron- 800 mcg tablet 1 tab PO DAILY Discontinued (DME) blood-glucose meter [OneTouch Ultra2 Meter] Misc See Rx Instructions .ROUTE DIRECTED Qty: 1 Rx Instructions: As directed (DME) OneTouch Ultra Test Strip See Rx Instructions .ROUTE QID Qty: 10 Rx Instructions: As directed (DME) lancets [OneTouch Delica Plus Lancet] 33 gauge misc See Rx Instructions .ROUTE QID Qty: 100 Rx Instructions: As directed (DME) insulin syringe-needle U-100 [Sure Comfort Insulin Syringe] 1 mL 30 gauge x 5/16 syringe See Rx Instructions .ROUTE .MEDSUPPLY Qty: 100 3RF Rx Instructions: As directed Humulin N NPH U-100 Insulin 100 unit/mL suspension 12 unit subcut .hs Qty: 30 1RF (DME) lancets Misc See Rx Instructions .ROUTE .MEDSUPPLY Qty: 100 3RF Rx Instructions: Test blood sugar 4 times daily. (DME) Test Strips Misc See Rx Instructions .ROUTE .MEDSUPPLY Qty: 100 3RF Rx Instructions: Test blood sugar 4 times daily. (DME) Blood Glucose Meter Misc See Rx Instructions .ROUTE .MEDSUPPLY Qty: 1 0RF Rx Instructions: As directed Discharge Orders: Discharge Order (Routine); Ordered 05/25/25 Ordered By: Ellyn Lu Patient Education: OB Over the Counter Medication Information, OB Vaginal/Breast Feeding Activity Level: Activity as Tolerated Discharge Diet: Regular Follow Up Appointments: Provider,Not a Local [Primary Care Provider, Family Practice] Forms: [employer] Info Instructions DS:Data Additional Comments Additional comments: 2 hour GTT: Fasting 92, 2-hour 153 (normal) Hemoglobin 11.2
== END 2025-05-25 12:00 | disposition home or self-care (01) | DRG 560 ==
LOC: OB OUT 03:56 → OB 03:56
PROVIDERS: Obstetrics & Gynecology; Admitting Provider Obstetrics & Gynecology; Visit Provider Obstetrics & Gynecology
DX: O24.424 Gestational diabetes mellitus in childbirth, insulin controlled (principal); O66.0 Obstructed labor due to shoulder dystocia; O70.21 Third degree perineal laceration during delivery, IIIa; N36.8 Other specified disorders of urethra; O98.32 Other infections with a predominantly sexual mode of transmission complicating childbirth; A60.00 Herpesviral infection of urogenital system, unspecified; O99.344 Other mental disorders complicating childbirth; F32.A Depression, unspecified; F41.9 Anxiety disorder, unspecified; Z3A.39 39 weeks gestation of pregnancy; Z37.0 Single live birth
CPT/HCPCS: 36415; 82947; 82950; 82962; 84112; 85018; 85025; 86592; 86850; 86900; 86901; A9270; J0690; J2003; J7120